=== PATIENT | female | born 1980 ===

== ENCOUNTER → 2017-03-28 | Outpatient (CLI) | payer OTHER ==
--- NOTE | 2017-03-28 09:15 | DIAGNOSTIC IMAGING REPORT ---
Biliary ultrasound CLINICAL HISTORY: Right upper quadrant abdominal pain COMPARISON STUDY: No previous studies for comparison. FINDINGS: The liver appears sonographically normal. The pancreas appears sonographically normal. There is no hydronephrosis. There is no ductal dilatation. The common bile duct measures 3 mm. The gallbladder contains a 3 mm nonshadowing echogenic focus, likely representing a small polyp. IMPRESSION: 1. 3 mm gallbladder polyp. Otherwise normal biliary ultrasound. Electronically signed by: Mustapha Espino M.D. 03/28/2017 9:13 AM Dictated Date/Time: 03/28/2017 9:10 AM
== END | disposition home or self-care (01) ==
LOC: C.ULTR 08:27
PROVIDERS: ATTEND Student in an Organized Health Care Education/Training Program
DX: R10.11 Right upper quadrant pain (principal); K82.4 Cholesterolosis of gallbladder